=== PATIENT | male | born 1950 | race Caucasian/White ===

== ENCOUNTER 2016-07-28 15:22 | Emergency (ER) | payer MEDICARE ==
[~2016-07-28] VITALS: Ht 172.7 cm; Wt 106.9 kg
[2016-07-28 15:24] VITALS: BP 151/91
== END 2016-07-28 16:58 | disposition home or self-care (01) ==
LOC: ED 16:52
DX: M25.562 Pain in left knee (principal)
CPT/HCPCS: 29505; 99284

== ENCOUNTER 2016-08-31 11:16 | Emergency (ER) | payer MEDICARE ==
[~2016-08-31] VITALS: Ht 170.2 cm; Wt 104.1 kg
[2016-08-31] MEDS ORDERED: ASPIRIN 81 MG TABLET CHEW ONE (11:59)
[2016-08-31] MEDS ORDERED: NITROGLYCERIN SINGLE TAB 0.4 MG SL ONE (11:59)
[2016-08-31] MEDS ORDERED: NITROGLYCERIN SINGLE TAB 0.4 MG SL PRN (12:00)
[2016-08-31] MEDS ORDERED: SODIUM CHLORIDE FLUSH 10ML SYR IVF ONE (12:00)
[2016-08-31] MEDS ORDERED: ASPIRIN 81 MG TABLET CHEW PO ONE (12:00)
[2016-08-31 12:17] LABS: BLOOD UREA NITROGEN 15 mg/dL (7-18)
[2016-08-31 12:21] LABS: IS PT STATUS REG ER OR PRE ER? YES
[2016-08-31 13:38] VITALS: BP 135/87
== END 2016-08-31 13:42 | disposition home or self-care (01) ==
LOC: ED 12:42
DX: R07.2 Precordial pain (principal)
CPT/HCPCS: 36415; 71010; 80048; 82040; 84484; 85025; 85610; 85730; 93005; 99285

== ENCOUNTER → 2016-10-06 | Outpatient (CLI) | payer MEDICARE ==
[2016-10-06 15:58] LABS: HEMATOCRIT 45.4 % (39.2-51.8); HEMOGLOBIN 15.4 g/dL (13.7-18.0); WHITE BLOOD COUNT 6.8 x10^3/uL (3.4-10)
[2016-10-06 16:08] LABS: BLOOD UREA NITROGEN 15 mg/dL (7-18)
[2016-10-06 16:18] LABS: ASPARTATE AMINO TRANSFERASE 25 U/L (15-37)
== END | disposition home or self-care (01) ==
LOC: LAB 15:40
PROVIDERS: ATTEND Nurse Practitioner Family
DX: E78.2 Mixed hyperlipidemia (principal); N20.0 Calculus of kidney; H93.13 Tinnitus, bilateral; M25.562 Pain in left knee; M54.30 Sciatica, unspecified side; R53.83 Other fatigue; R73.01 Impaired fasting glucose
CPT/HCPCS: 36415; 80053; 80061; 84439; 84443; 85025

== ENCOUNTER 2017-02-10 17:19 | Observation (INO) | payer MEDICARE ==
[~2017-02-10] VITALS: Ht 170.2 cm; Wt 100.8 kg
[2017-02-10] MEDS ORDERED: SODIUM CHLORIDE FLUSH 10ML SYR IVF ONE (18:00)
[2017-02-10 18:32] LABS: BASOPHILS # (AUTO) 0.03 x10^3/uL (0-0.1); BASOPHILS % (AUTO) 1 % (0-1); EOSINOPHILS # (AUTO) 0.33 x10^3/uL (0-0.4); EOSINOPHILS % (AUTO) 5 % (1-7); LYMPHOCYTES # (AUTO) 1.58 x10^3/uL (1-3.4); LYMPHOCYTES % (AUTO) 25 % (22-44); MD NO; MEAN CORPUSCULAR HEMOGLOBIN 32.1 pg (27.5-34.5); MEAN CORPUSCULAR HGB CONC 34.1 g/dL (33.2-36.2); MEAN CORPUSCULAR VOLUME 94.2 fL (81-97); MEAN PLATELET VOLUME 7.8 fL (7.4-10.4); MONOCYTES # (AUTO) 0.56 x10^3/uL (0.2-0.8); MONOCYTES % (AUTO) 9 % (2-9); NEUTROPHILS # (AUTO) 3.83 x10^3/uL (1.8-6.8); NEUTROPHILS % (AUTO) 60 % (42-75); PLATELET COUNT 196 x10^3/uL (130-400); RED BLOOD COUNT 4.98 x10^6/uL (4.38-5.82); RED CELL DISTRIBUTION WIDTH 13.3 % (9.4-14.8)
[2017-02-10 18:43] LABS: ALBUMIN 3.9 g/dL (3.4-5.0); ANION GAP 7 mmol/L (5-15); CALCIUM 8.9 mg/dL (8.5-10.1); CHLORIDE 107 mmol/L (98-107); CREATININE 0.88 mg/dL (0.7-1.3)
[2017-02-10 18:47] LABS: TROPONIN I < 0.015 ng/mL (0.000-0.045)
[2017-02-10] MEDS ORDERED: ACETAMINOPHEN 325 MG TABLET PO ONE (20:30)
[2017-02-10] MEDS ORDERED: NITROGLYCERIN SINGLE TAB 0.4 MG SL ONE (20:39)
[2017-02-10] MEDS ORDERED: ACETAMINOPHEN 325 MG TABLET ONE (20:39)
[2017-02-10] MEDS: NITROGLYCERIN SINGLE TAB 0.4 MG SL PRN ×2 (20:49→23:08)
[2017-02-10] MEDS ORDERED: SODIUM CHLORIDE FLUSH 10ML SYR IVF PRN (21:00)
[2017-02-10] MEDS ORDERED: ENALAPRILAT 1.25 MG/ML, 2ML IVPush PRN (21:30)
[2017-02-10] MEDS ORDERED: hydrALAzine 20 MG/ML, 1ML IVPush PRN (21:30)
[2017-02-10] MEDS ORDERED: DOCUSATE 100 MG CAPSULE PO PRN (21:30)
[2017-02-10] MEDS ORDERED: ACETAMINOPHEN 325 MG TABLET PO PRN (21:30)
[2017-02-10] MEDS ORDERED: TEMAZEPAM 15 MG CAPSULE PO PRN (21:30)
[2017-02-10] MEDS ORDERED: ONDANSETRON ODT 4 MG PO PRN (21:30)
[2017-02-10 22:03] VITALS: BP 134/82
[2017-02-10] MEDS ORDERED: NITROGLYCERIN 0.4 MG BOTTLE (25 TABS) SL ONE (23:05)
[2017-02-10 23:13] VITALS: BP 134/85
[2017-02-11] MEDS ORDERED: ONDANSETRON 2MG/ML, 2ML IVPush PRN
[2017-02-11] MEDS: HEPARIN 5,000 UNITS/ML, 1ML SQ SCH ×2 (00:06→08:00)
[2017-02-11 01:08] LABS: TROPONIN I 0.035 ng/mL (0.000-0.045)
[2017-02-11 01:24] VITALS: BP 97/60
[2017-02-11 06:42] LABS: TROPONIN I 0.049 ng/mL (0.000-0.045)
[2017-02-11 07:20] VITALS: BP 99/62
[2017-02-11] MEDS ORDERED: REGADENOSON 0.4 MG/5 ML SYRINGE ONE (09:04)
== END 2017-02-11 14:00 | disposition home or self-care (01) ==
LOC: ED 21:01 → EDIP 21:20 → INTOOBSV 21:20 → 5SO 21:54 → DCLOUNGE 02-11 13:55
PROVIDERS: ADMIT Internal Medicine; ATTEND Internal Medicine
DX: R07.2 Precordial pain (principal); F41.9 Anxiety disorder, unspecified
CPT/HCPCS: 36415; 71046; 78452; 80048; 82040; 83880; 84484; 85025; 93005; 93017; 93306; 96372; 99285; A9502; C9898; G0378; J1644; J2785

== ENCOUNTER → 2017-08-19 | Outpatient (CLI) | payer MEDICARE | END | disposition home or self-care (01) | LOC: CFH 06:58 | PROVIDERS: ATTEND Internal Medicine Cardiovascular Disease | DX: R07.9 Chest pain, unspecified (principal); R42 Dizziness and giddiness; F41.9 Anxiety disorder, unspecified; E78.2 Mixed hyperlipidemia | CPT/HCPCS: 75571 ==

== ENCOUNTER 2017-09-05 14:34 | Emergency (ER) | payer MEDICARE, OTHER ==
[~2017-09-05] VITALS: Ht 172.7 cm; Wt 103.0 kg
[2017-09-05 14:37] VITALS: BP 133/89
[2017-09-05] MEDS ORDERED: KETOROLAC 30 MG/1 ML ONE (14:57)
[2017-09-05] MEDS ORDERED: KETOROLAC 30 MG/1 ML IM ONE (15:00)
== END 2017-09-05 15:47 | disposition home or self-care (01) ==
LOC: ED 15:41
DX: S40.011A Contusion of right shoulder, initial encounter (principal); X58.XXXA Exposure to other specified factors, initial encounter; Y93.89 Activity, other specified; Y92.89 Other specified places as the place of occurrence of the external cause; Y99.0 Civilian activity done for income or pay
CPT/HCPCS: 73030; 96372; 99284; J1885

== ENCOUNTER → 2017-09-29 | Outpatient (CLI) | payer MEDICARE | END | disposition home or self-care (01) | LOC: RAD 14:29 | PROVIDERS: ATTEND Nurse Practitioner Family | DX: M47.816 Spondylosis without myelopathy or radiculopathy, lumbar region (principal) | CPT/HCPCS: 72148 ==

== ENCOUNTER → 2017-12-21 | Outpatient (CLI) | payer MEDICARE | END | disposition home or self-care (01) | LOC: RAD 13:52 | PROVIDERS: ATTEND Nurse Practitioner Family | DX: M19.011 Primary osteoarthritis, right shoulder (principal); M75.21 Bicipital tendinitis, right shoulder ==

== ENCOUNTER 2018-04-01 11:29 | Emergency (ER) | payer MEDICARE ==
[~2018-04-01] VITALS: Ht 170.2 cm; Wt 106.3 kg
[2018-04-01 11:30] VITALS: BP 165/96
[2018-04-01] MEDS ORDERED: PROPARACAINE OPHTH 0.5%, 15ML ONE (11:38)
--- NOTE | 2018-04-01 11:43 | NUR ---
PT HERE FOR RIGHT EYE IRRITATION. PT REPORTS IRRITATION AND PAIN. PT HAS CLEAR TEARS DRAINING FROM EYE. PT DENIES TRAUMA. PT DID NOT HAVE A FB IN EYE.
--- NOTE | 2018-04-01 11:48 | NUR ---
Patient/Caregiver given discharge instructions and they have confirmed that they understand the instructions. Patient ambulatory with steady gait.
== END 2018-04-01 12:10 | disposition other institution (70) ==
LOC: ED 12:01
DX: S05.01XA Injury of conjunctiva and corneal abrasion without foreign body, right eye, initial encounter (principal); X58.XXXA Exposure to other specified factors, initial encounter; Y93.89 Activity, other specified; Y92.89 Other specified places as the place of occurrence of the external cause; Y99.8 Other external cause status
CPT/HCPCS: 99283

== ENCOUNTER 2018-04-02 02:47 | Emergency (ER) | payer MEDICARE ==
[~2018-04-02] VITALS: Ht 170.2 cm; Wt 108.1 kg
[2018-04-02 02:54] VITALS: BP 172/92
[2018-04-02] MEDS ORDERED: NITROGLYCERIN SINGLE TAB 0.4 MG SL PRN (03:00)
[2018-04-02] MEDS ORDERED: NITROGLYCERIN SINGLE TAB 0.4 MG SL ONE (03:15)
== END 2018-04-02 03:35 | disposition home or self-care (01) ==
LOC: ED 03:21
DX: S05.01XA Injury of conjunctiva and corneal abrasion without foreign body, right eye, initial encounter (principal); X58.XXXA Exposure to other specified factors, initial encounter; Y93.89 Activity, other specified; Y92.89 Other specified places as the place of occurrence of the external cause; Y99.8 Other external cause status
CPT/HCPCS: 99283